=== PATIENT | male | born 1965 | race Caucasian/White ===

== ENCOUNTER 2024-02-08 15:45 | Inpatient (IN) | payer OTHER, SELFPAY ==
[2024-02-08] VITALS (9 sets, daily range): BP systolic 84–108; BP diastolic 52–70; BMI 28.6
[2024-02-08] MEDS: NSS 1000 IV (11:02)
[2024-02-08] MEDS: ZOFRAN 4 MG IV (11:03)
[2024-02-08 11:13] LABS: % Basophils 0.7 % (0-2); % Eosinophils 5.2 % (0-6); % Immature Granulocytes 0.4 % (0-0.5); % Lymphocytes 15.3 % (20.5-51.1); % Monocytes 11.5 % (1.7-9.3); % Neutrophils 66.9 % (42.2-75.2); Absolute Basophils 0.1 10^3/uL (0-0.2); Absolute Eosinophils 0.5 10^3/uL (0-0.7); Absolute Lymphocytes 1.6 10^3/uL (1.2-3.4); Absolute Monocytes 1.2 10^3/uL (0.1-0.6); Hematocrit 46.1 % (39.0-52.0); Hemoglobin 15.8 g/dL (13.0-18.0); Mean Corp Hgb Conc. 34.3 g/dL (33.0-37.0); Mean Corpuscular Hgb 27.6 pg (27.0-31.0); Mean Corpuscular Volume 80.5 fL (80.0-94.0); Mean Platelet Volume 9.8 fL (7.4-10.4); Nucleated Red Blood Cells % 0 % (-); Platelet Count 377 10^3/uL (130-400); Red Blood Cell Count 5.73 10^6/uL (4.70-6.10); White Blood Cell Count 10.4 10^3/uL (4.8-10.8)
[2024-02-08 11:26] LABS: ALT (SGPT) 41 U/L (0-50); AST (SGOT) 49 U/L (17-59); Albumin 5.1 g/dl (3.5-5.0); Alkaline Phosphatase 48 U/L (38-126); Blood Urea Nitrogen 79 mg/dl (9-20); Calcium 13.1 mg/dl (8.4-10.2); Carbon Dioxide 18 mmol/L (22-30); Chloride 100 mmol/L (98-107); Glucose 121 mg/dl (70-99); Lipase 484 U/L (23-300); Potassium 4.7 mmol/L (3.5-5.1); Sodium 135 mmol/L (135-145); Total Bilirubin 0.7 mg/dl (0.2-1.3); Total Protein 8.3 g/dl (6.3-8.2); eGFR 11.87
[2024-02-08 11:30] LABS: PT 32.7 Sec (11.4-14.6)
--- NOTE | 2024-02-08 11:34 | ED.GENMED ---
History of Present Illness
General
Chief Complaint: Abdominal Symptoms
Source: patient and spouse
Exam Limitations: none
Time Seen by Provider: 02/08/24 09:35
Nursing documentation reviewed up to this point in time: agreed with
Travel History
Have you had any contact with someone who has COVID-19?: No
Do you have any symptoms of coronavirus? Fever > 100 degrees, chills, cough, shortness of breath, sore throat, loss of taste or smell, muscle aches, or headache?: No
History of Present Illness
History of Present Illness:
58-year-old male with history of HTN, HLD, NIDDM, lupus, RA, Pituitary tumor, PE/DVT on Coumadin, presents stating he woke up 2 days ago in the middle of the night with cramps in his upper abdomen, throughout the night every 45 minutes he had
liquid diarrhea what looked like 'black tea' in it. He has taken Pepto-Bismol intermittently over the past few days. He has had increased belching and acid reflux, has been sweating off and on, now has a mild headache.
States yesterday at 5 PM he ate soup and at 6 PM he vomited nonbloody emesis, had lower abdominal cramps before the diarrhea. He has been trying to keep down Pedialyte and water but every time he put something in his stomach he has diarrhea.
Denies fever. Denies CP or SOB.
Took Imodium twice yesterday and twice last night.
He started Mounjaro 4 weeks ago otherwise no change in his medications.
Past History
Past History
ED Past Medical History: HTN, Hypercholesterolemia, NIDDM, Psychiatric (Anxiety) and Other (Kidney stones, Lupus, Anticoagulation problem on Coumadin, RA, Pituitary tumor, PE/DVT)
ED Past Surgical History: Orthopedic and Urological (Testicular torsion)
Social History
Tobacco: Non-smoker
Alcohol: Occasional
Personal:
Living: with family
Employment: Employed
Review of Systems
Review of Systems
Allergies reviewed?: Yes
All Other Systems: ROS reviewed and negative except as documented in HPI and ROS
Constitutional: Reports fatigue; Denies fever
Respiratory: Denies cough or trouble breathing
Cardiac: Denies chest pain
ABD/GI: Reports abdominal pain, nausea, diarrhea, black stools and anorexia; Denies vomiting or bloody stools
: Reports other (He states he has not been urinating as much as usual); Denies dysuria, frequency, difficulty voiding, urgency or dark urine
Musculoskeletal: Reports other (General body aches past several weeks); Denies joint swelling, edema, neck pain or back pain
Skin: Reports no symptoms
Neurological: Denies dizzy, headache, weakness or numbness
Phy Exam
Physical Exam
Physical Exam:
GENERAL: No acute distress. A&Ox3.
CONSTITUTIONAL: Afebrile.
EYES: PERRL, conjunctivae normal
Neck: Supple
ENMT: moist mucus membranes, Pharynx nl
RESPIRATORY: Regular respirations, nonlabored, lungs clear.
CARDIOVASCULAR: Regular rate and rhythm, no murmurs, no rubs.
GI: Soft, nontender, normal BS
MUSCULOSKELETAL: Moves with ease. Well perfused. No edema
SKIN: Warm, dry, pink
PSYCH: Normal mood and affect. Well kept, interactive and appropriate
NEUROLOGIC: Awake, alert and oriented. No focal neurological deficits
Course
Orders/Labs/Results
Orders:
Orders
02/08/24 10:13
Stool Culture Urgent
LUC Source: Feces/Stool
Specimen Description:
Date Specimen was Collected: 02/08/24
Time Specimen was Collected: 10:25
02/08/24 10:14
CT Abd/pel Without Iv Or Oral Urgent
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
Reason For Exam: Generalized abdominal pain, worse mid lower to lef
0.9% Sodium Chloride 1000 ml [Nss] 1,000 ml IV BOLUS
02/08/24 10:15
Ondansetron Injectable [Zofran] 4 mg IV NOW STA
02/08/24 11:03
Complete Blood Count/With Diff Urgent
Comprehensive Metabolic Panel Urgent
Lipase Urgent
Prothrombin Time Urgent
02/08/24 13:53
Electrocardiogram (*1) Urgent
Reason for Study: Other
Other Reason for Exam: hypercalcemia
EKG- Treatment ONCE
02/08/24 Dinner
1800 calorie (15 carb) Diabetic
At Your Request: Full Participation
Does patient need a safe tray?: Yes
02/08/24 15:11
Lactated Ringers [Lr] 1,000 ml IV BOLUS
02/08/24 15:28
Code Status As Directed
Resuscitation Status: Full Code
VTE Contraindication Routine
VTE Mechanical Device Contraindication: Medical Contraindication
Pharmocologic Contraindication: Medical Contraindication
Acetaminophen [Tylenol] 650 mg PO Q4HPRN PRN
Ondansetron Injectable [Zofran] 4 mg IV Q6HPRN PRN
Activity As Directed
Activity Level: With Assistance
Vital Signs As Directed
Frequency: Per unit guidelines
02/08/24 15:37
Admit/Transfer Patient As Directed
Co-Sign Provider:
Level of Care: Inpatient admission
Assign to:: Medical/Surgical
Physician / Group: Hospitalist
Diagnosis: ELVA, gastroenteritis
Reason for Hospitalization: ELVA
Expected length of stay greater than two midnights?: Yes
ELOS- Estimated Length of Stay in days: 2
I certify the patient meets the requirements for IP care: Yes
02/08/24 15:51
Urinalysis Reflex To Culture Urgent
Date Specimen was Collected: 02/08/24
Time Specimen was Collected: 15:38
Urine Creatinine Urgent
Date Specimen was Collected: 02/08/24
Time Specimen was Collected: 15:38
Urine Protein/Creat Ratio (Random) [Protein/Creat Ratio (Random)] Urgent
Date Specimen was Collected: 02/08/24
Time Specimen was Collected: 15:38
Urine Sodium Urgent
Date Specimen was Collected: 02/08/24
Time Specimen was Collected: 15:38
C difficile Antigen & Toxins Urgent
LUC Source: Feces/Stool
Specimen Description:
Date Specimen was Collected: 02/08/24
Time Specimen was Collected: 15:38
Stool Culture Urgent
LUC Source: Feces/Stool
Specimen Description:
Date Specimen was Collected: 02/08/24
Time Specimen was Collected: 15:38
Stool For WBC Urgent
LUC Source: Feces/Stool
Specimen Description:
Date Specimen was Collected: 02/08/24
Time Specimen was Collected: 15:38
02/08/24 16:00
Lactated Ringers [Lr] 1,000 ml IV 150 mls/hr
02/08/24 17:26
Insulin Aspart Corrective Low [Novolog Flexpen-Low Resistance] See Protocol SC AC
02/08/24 17:26
NEPHROLOGY CONSULT Routine
Consulting Provider: Kassy Solis
Was physician already notified: Yes
Reason for consult: ELVA.
Bedside Glucose Monitoring As Directed
Frequency: AC&HS
02/08/24 17:39
MARI, IgG Reflex to HEp-2 [S] Routine
BMP [Basic Metabolic Panel] Routine
CRP [C-Reactive Protein] Routine
Complement C3 Routine
Complement C4 Routine
ESR [Erythrocyte Sed Rate] Routine
ds-DNA Ab, IgG Reflex To Titer [S] Routine
02/08/24 18:00
Rosuvastatin Calcium [Crestor] 40 mg PO QPM
Warfarin [Coumadin] 3 mg PO ONCE@1800 ONE
02/08/24 20:00
Hydroxychloroquine [Plaquenil] 200 mg PO BID
02/09/24 06:00
Basic Metabolic Panel IN AM
Complete Blood Count/No Diff IN AM
Magnesium IN AM
Prothrombin Time IN AM
02/09/24 18:00
Warfarin [Coumadin] 6 mg PO QPM
Abnormal Lab Results
02/08/24
11:03
Absolute Neuts (auto) 7.0 H 10^3/uL
(1.4-6.5)
Absolute Monos (auto) 1.2 H 10^3/uL
(0.1-0.6)
Lymphocytes % 15.3 L %
(20.5-51.1)
Monocytes % 11.5 H %
(1.7-9.3)
PT 32.7 H Sec
(11.4-14.6)
Carbon Dioxide 18 L mmol/L
(22-30)
BUN 79 H mg/dl
(9-20)
Creatinine 5.3 H* mg/dL
(0.7-1.3)
Glucose 121 H mg/dl
(70-99)
Calcium 13.1 H* mg/dl
(8.4-10.2)
Total Protein 8.3 H g/dl
(6.3-8.2)
Albumin 5.1 H g/dl
(3.5-5.0)
Lipase 484 H U/L
(23-300)
02/08/24 11:03
02/08/24 11:03
Vital Signs
Initial and Last Documented VS:
Initial Vital Signs
Temp Pulse Resp BP Pulse Ox
97.8 F 102 16 100/52 98
02/08/24 09:15 02/08/24 09:15 02/08/24 09:15 02/08/24 09:15 02/08/24 09:15
Last Documented Vital Signs
Temp Pulse Resp BP Pulse Ox
97.8 F 85 18 108/70 97
02/08/24 17:28 02/08/24 17:28 02/08/24 17:28 02/08/24 17:28 02/08/24 17:28
Physical Therapy Aide consulted with Physician
Physical Therapy Aide consulted with physician?: Yes
Name of Physician Consulted: Celeste
MDM/Problems Addressed
Differential Diagnosis Includes:
gastroenteritis, diverticulitis, dehydration
MDM/Problems Addressed:
58-year-old male with history of HTN, HLD, NIDDM, lupus, RA, Pituitary tumor, PE/DVT on Coumadin, presents stating he woke up 2 days ago in the middle of the night with cramps in his upper abdomen, throughout the night every 45 minutes he had
liquid diarrhea what looked like 'black tea' in it. He has taken Pepto-Bismol intermittently over the past few days. He has had increased belching and acid reflux, has been sweating off and on, now has a mild headache.
States yesterday at 5 PM he ate soup and at 6 PM he vomited nonbloody emesis, had lower abdominal cramps before the diarrhea. He has been trying to keep down Pedialyte and water but every time he put something in his stomach he has diarrhea.
Denies fever. Denies CP or SOB.
Took Imodium twice yesterday and twice last night.
He started Mounjaro 4 weeks ago otherwise no change in his medications.
11:35 AM
CBC normal
CMP: Bicarb 18, BUN/creat 79/5.3 Ca++13.1 anion gap 17
Lipase 484
EKG: NSR
1:30 PM
CAT scan abdomen pelvis w/o contrast radiology report reviewed:
IMPRESSION:
1. Moderate fluid distention of the stomach which could be secondary to gastritis.
2. Mild chronic bilateral renal disease.
3. Mild hepatomegaly.
4. Severely enlarged prostate gland.
5. Mild thickening of the urinary bladder wall (probably chronic outlet obstruction.
6. Severe discogenic degenerative disease at L5/S1.
Case discussed with Dr. Alonso who reviewed CT scan and labs, no emergent treatment indicated, nothing to explain renal failure at this time
Pt remains comfortable and stable. Informed of all results and all questions answered.
Hospitalist notified of admission.
Dx: Acute renal failure, gastroenteritis
Chronic conditions affecting care: DM, HTN and Immunosuppressed (Rheumatoid arthritis on hydroxychloroquine)
*EKG
EKG Intrepretation Date: 02/08/24
Interpretation: normal
Rate: normal
Rhythm: sinus
[place]: normal axis
Interval: normal interval
QRS Pattern: normal QRS
Ischemia: non-specific ST changes
*Critical Care Note
Total Time (30-74mins, 75-104mins- exclusive of procedures): Not Applicable
ED Attending Note
-
Portions of this chart may have been created with voice recognition software.� Occasional wrong word or��sound alike� substitutions may have occurred due to the inherent limitations of voice recognition software.
Discharge Plan
Departure
Patient Disposition: Admit
Date of Disposition: 02/08/24
Time of Disposition: 13:42
Admit to: Med/Surg
Presentation/result/management discussed w/ accepting MD/DO: Hospitalist
Condition: Fair
Discharge Problem:
Acute renal failure, Gastroenteritis
Interventions
Interventions:
*Risk Screen - Suicide Last Done: 02/08/24 09:13
*General Assessment Last Done: 02/08/24 09:13
*Neglect/Abuse Screening Last Done: 02/08/24 09:13
ED- Fall Risk Assessment Last Done: 02/08/24 09:13
*ED COVID-19 Vaccine History Last Done: 02/08/24 09:15
*Nursing Disposition Last Done: 02/08/24 18:55
QO-Najbkk-Emdcngvahk Assessment Last Done: 02/08/24 09:13
Discharge Date and Time
Discharge Date/Time: 02/08/24 16:45
--- NOTE | 2024-02-08 15:11 | HPS.HSE ---
Family Physician
-
Family Physician: Toya Jones
Chief Complaint
-
Diarrhea nausea and vomiting
History of Present Illness
This is a 8-year-old male with a past medical history that significant for diabetes not on insulin, hypertension, hyperlipidemia history of lupus with anticoagulants and venous thromboembolism (PE and DVT) which is currently in remission who
presents emergency department after approximately 3 days of GI symptoms including diarrhea nausea vomiting.
Patient reported acute onset of diarrhea on . Reports watery diarrhea for which he was having bowel movements about every 30 minutes this lasted throughout the day on and Friday as well as half of the day on Friday. On Friday
started having nausea and vomiting and was unable to tolerate any p.o. Patient continued to take his usual OBEY inhibitor, thiazide and Jardiance on and Friday but did not take those medications today. He denies any hematochezia.
He denies any melena. Patient denies having any fevers or chills. Denies any recent travels or sick contact. Denies any recent antibiotic use. He denies any history of CAD.
Patient denies any urinary incontinence, dysuria or hematuria. He reported that he did have a blood work done 1 month ago because he was having fatigue and some generalized aches and pains. He was worked up for exacerbation of lupus. The ESR and
CRP were negative. The urine was clear at that time. His creatinine was 1.4. It was determined that this was not a lupus flare. Of note patient was diagnosed with lupus at age 17 with pericarditis. He said at the time he was hospitalized and
required IV medications but has been stable on Plaquenil without use of flare medications for several years. He states his fatigue has improved denies any rash joint aches and pains. He denies having any chest pain. Patient recently denies any
NSAID use. No recent contrast exposure.
In the emergency department patient blood pressure 1 and systolic, heart rate was 93. Normal oxygen saturation. ECG showed normal sinus rhythm at a rate of 93. He had a CT of the abdomen pelvis without contrast which showed no stone, no
hydronephrosis. Is CBC shows a white count of 10.9 hemoglobin of 15.8 and platelet of 372. INR was 3.2. Chemistries were notable for a BUN of 39, creatinine of 5.3 and a glucose of 121 and calcium of 13.1. Abnormal 5.1. Lipase was elevated at
484.
Medical History
Past Medical History
Past Medical History: Reports HTN and NIDDM
Additional Past Medical History:
Lupus
DVT
PE
Past Surgical History: Reports None
Social History
Tobacco: Non-smoker
Alcohol: None
Drug: None
Personal:
Living: With Family
Employment: Employed
Family History
Family History: Not pertinent
Allergies / Home Medications
Allergies reflects when Allergies were last updated in [facility].
Home Medications with original date entered in [facility]
Allergy/Medication List:
Allergies
Allergy/AdvReac Type Severity Reaction Status Date / Time
No Known Allergies Allergy Verified 02/08/24 09:17
Home Medications
amlodipine 5 mg tablet (Norvasc) 5 mg PO BID 02/08/24
cholecalciferol (vitamin D3) 125 mcg (5,000 unit) tablet (Vitamin D3) 125 mcg PO QPM 02/08/24
coQ10 (ubiquinol) 100 mg capsule 100 mg PO QPM 02/08/24
empagliflozin 25 mg tablet (Jardiance) 25 mg PO DAILY 02/08/24
fenofibrate micronized 160 mg tablet 160 mg PO DAILY@1200 02/08/24
hydrochlorothiazide 12.5 mg tablet 12.5 mg PO DAILY 02/08/24
hydroxychloroquine 200 mg tablet (Plaquenil) 200 mg PO BID 02/08/24
lisinopril 40 mg tablet 60 mg PO DAILY 02/08/24
metformin 500 mg tablet,extended release 24 hr 1,000 mg PO BID 02/08/24
omega 3-vwk-omr-fish oil 1,000 mg (120 mg-180 mg) capsule (Fish Oil) 2 cap PO BID 02/08/24
pantoprazole 40 mg tablet,delayed release (Protonix) 40 mg PO DAILY 02/08/24
rosuvastatin 40 mg tablet (Crestor) 40 mg PO QPM 02/08/24
therapeutic multivitamin 1 tab PO QPM 02/08/24
tirzepatide 5 mg/0.5 mL subcutaneous pen injector (Mounjaro) 2.5 mg SC MO 02/08/24
vitamin E 268 mg (400 unit) capsule 268 mg PO BID 02/08/24
warfarin 2 mg tablet 6 mg PO QPM 02/08/24
Review of Systems
-
History Source: Patient
Constitutional: Reports Fatigue
EENT: Reports No Symptoms
Respiratory: Reports No Symptoms
Cardiac: Reports No Symptoms
Abdomen/GI: Reports Nausea, Vomiting and Diarrhea
: Reports No Symptoms
Musculoskeletal: Reports No Symptoms
Skin: Reports No Symptoms
Neurological: Reports No Symptoms
Endocrine: Reports No Symptoms
Hematologic/Lymphatic: Reports No Symptoms
Psych: Reports No Symptoms
Physical Exam
Vital Signs
Vital Signs
Temp Pulse Resp BP Pulse Ox
97.8 F 102 16 90/54 95
02/08/24 09:15 02/08/24 09:15 02/08/24 09:15 02/08/24 13:31 02/08/24 13:45
Physical Exam
General: No Apparent Distress, Comfortable and Conversant
HEENT: Anicteric and PERRLA
Respiratory: Clear
Cardiac: S1/S2 and Regular Rhythm
Breast: Deferred by me
GI: Soft, Non Tender and Non Distended
Rectal: Deferred by Provider
Genito-urinary: Clear Urine
Musculoskeletal: No Clubbing, No Cyanosis and No Edema
Skin: Warm
Neuro: AO x 3
Hematologic/Lymphatic: No Lymphadenopathy
Psych: Calm and Intact Judgment/Insight
Laboratory Results
-
02/08/24 11:03
02/08/24 11:03
Laboratory Results
PT 32.7 Sec (11.4-14.6) H 02/08/24 11:03
INR 3.20 02/08/24 11:03
Total Bilirubin 0.7 mg/dl (0.2-1.3) 02/08/24 11:03
AST 49 U/L (17-59) 02/08/24 11:03
ALT 41 U/L (0-50) 02/08/24 11:03
Alkaline Phosphatase 48 U/L (38-126) 02/08/24 11:03
Lipase 484 U/L (23-300) H 02/08/24 11:03
Data Reviewed
-
CT Scan: Report Reviewed by me
Medical Tests (Nuc Med, Echo, EKG etc): Image Personally Visualized and interpreted
Lab Data: Labs Reviewed by me
Old Records: Reviewed
Impression/Plan
-
IMPRESSION:
Patient with h/o DM II, LUPUS, DVT/PE, HTN, presenting with 3 days of diarrhea, nasuea, vomiting and ELVA with creatinine of 5.3.
PLAN:
1. ELVA - Suspect secondary to combination of severe GI losses (bm q 30 minutes x 3 days with elevated Hgb, Albumin and lower bp) and use of ACEI + HCTZ. No NSAIDs or Contrast. Possible contribution of GN given h/o lupus. Cr 5.3, up from 1.4 1
month ago. BUN/Cr < 20. K and bicarb ok. No obstruction on imaging and made urine in ED.
- admit to med/surg
- check u/a for protein, rbc, and active sediments
- check urine protein/cr ratio
- check esr, crp, percy, DSDNA, c3/c4 levels
- check urine sodium and FENa
- bolus LR x 1, and continue with LR at 125 ml/hr,
- i/o q 8, repeat labs in 8 hours.
- hold acei, hctz, jardiance for now
- nephrology consultation
2. Diarrhea - Suspect acute viral gastroenteritis. No hematochezia. No fevers, chills. Non-toxic appearing.
- stool studies including cdiff, cultures , if negative, can start loperamide
- antiemetics and pain control
- ADAT
3. DM II
- hold metformin and jardiance
- sliding scale insulin for now
4. Lupus -
- continue hydroxychloroquine 200 bid
- check activity with serologies and urine studies as above
5. DVT/ PE
- INR, 3.5, 3mg of warfarin tonight, then continue 6mg qpm daily
Full Code
[2024-02-08] MEDS: LR 1000 IV ×2 (15:41→17:29)
[2024-02-08 16:08] LABS: Urine Albumin Trace (Neg - Trace); Urine Bilirubin 2+ (Negative); Urine Character Clear (Clear); Urine Color Yellow; Urine Glucose 2+ (Negative); Urine Ketone Trace (Negative); Urine Leukocyte Negative (Negative); Urine Nitrite Negative (Negative); Urine Occult Blood Negative (Negative); Urine Specific Gravity 1.025 (<1.030); Urine Urobilinogen Negative (Neg - 1+)
--- NOTE | 2024-02-08 16:12 | W.CON.NEPH ---
Consultation
-
Date/Time Consultation Requested: 02/08/24 1600
Date/Time Consultation Performed: 02/08/24 1730
Requesting Provider: Judith Brown
Performing Provider: Kassy Arteaga
Reason for Consultation: ELVA
Medical History
-
Chief Complaint: Diarrhea
History of Present Illness:
This is a 58-year-old male with a past medical history that significant for diabetes type 2 on metformin, Jardiance and mounjaro started 4wks ago, hypertension on Amlodipine, HCTZ, lisinopril 60mg, , hyperlipidemia on fibrates, history of RA,
systemic lupus on HCQ, known DVT, PE on warfarin presents emergency department after approximately 3 days of GI symptoms including profuse diarrhea nausea vomiting.
Patient reported acute onset of diarrhea 3days ago in midnight undigested food and later it became liquid. Has associated nausea and vomiting hence decreased po intake. His UOP decreased too. Feels dizzy and continued his BP meds. Did not check BPs.
had abd cramps. Patient denies having any fevers or chills. Denies any recent travels or sick contact. Denies any recent antibiotic use. He follows with Rheumatology closely and due to his recent fatigue, body aches he had retested ESR and CRP
which were ok but cr was up from baseline to 1.4 and felt no lupus flare. denies dysuria or hematuria. Of note patient was diagnosed with lupus at age of 17 with pericarditis. He said at the time he was hospitalized and required IV medications
but has been stable on Plaquenil without use of flare medications for several years. He states his fatigue has improved denies any rash joint aches and pains. He denies having any chest pain. Patient denies any NSAID use. No recent contrast
exposure CT abd done BACK LINE COOK. He needed CT chest for f/u on pulm nodule.
In the emergency department CT of the abdomen pelvis without contrast which showed no stone, no hydronephrosis. Is CBC shows a white count of 10.9 hemoglobin of 15.8, INR was 3.2. Chemistries were notable for a BUN of 39, creatinine of 5.3 and
calcium of 13.1. Alb 5.1. Lipase was elevated at 484. Hence nephrology consulted.
Past Medical History
HTN
HLD
Lupus
h/o pericarditis
RA
DVT
PE
DM
obesity
Social History
Tobacco: Non-Smoker
Alcohol: None
Drug: None
Personal:
Living: With Family
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
Family History
father nephrectomy for growth
Family History: Not Pertinent
Allergies / Home Medications
Allergy/AdvReac Type Severity Reaction Status Date / Time
No Known Allergies Allergy Verified 02/08/24 09:17
�Medication �Instructions �Recorded �Confirmed �Type
amlodipine 5 mg tablet (Norvasc) 5 mg PO BID 02/08/24 02/08/24 History
cholecalciferol (vitamin D3) 125 125 mcg PO QPM 02/08/24 02/08/24 History
mcg (5,000 unit) tablet (Vitamin
D3)
coQ10 (ubiquinol) 100 mg capsule 100 mg PO QPM 02/08/24 02/08/24 History
empagliflozin 25 mg tablet 25 mg PO DAILY 02/08/24 02/08/24 History
(Jardiance)
fenofibrate micronized 160 mg 160 mg PO DAILY@1200 02/08/24 02/08/24 History
tablet
hydrochlorothiazide 12.5 mg tablet 12.5 mg PO DAILY 02/08/24 02/08/24 History
hydroxychloroquine 200 mg tablet 200 mg PO BID 02/08/24 02/08/24 History
(Plaquenil)
lisinopril 40 mg tablet 60 mg PO DAILY 02/08/24 02/08/24 History
metformin 500 mg tablet,extended 1,000 mg PO BID 02/08/24 02/08/24 History
release 24 hr
omega [id number]-fish oil 1,000 mg 2 cap PO BID 02/08/24 02/08/24 History
(120 mg-180 mg) capsule (Fish Oil)
pantoprazole 40 mg tablet,delayed 40 mg PO DAILY 02/08/24 02/08/24 History
release (Protonix)
rosuvastatin 40 mg tablet (Crestor) 40 mg PO QPM 02/08/24 02/08/24 History
therapeutic multivitamin 1 tab PO QPM 02/08/24 02/08/24 History
tirzepatide 5 mg/0.5 mL 2.5 mg SC MO 02/08/24 02/08/24 History
subcutaneous pen injector
(Mounjaro)
vitamin E 268 mg (400 unit) capsule 268 mg PO BID 02/08/24 02/08/24 History
warfarin 2 mg tablet 6 mg PO QPM 02/08/24 02/08/24 History
Review of Systems
-
All complete 12 point ROS have been inquired and found negative other than stated in HPI
Physical Exam
Vital Signs
Vital Signs
Temp Pulse Resp BP Pulse Ox
97.8 F 102 16 100/62 99
02/08/24 09:15 02/08/24 09:15 02/08/24 09:15 02/08/24 15:00 02/08/24 15:45
Lab Results
WBC 10.4 10^3/uL (4.8-10.8) 02/08/24 11:03
RBC 5.73 10^6/uL (4.70-6.10) 02/08/24 11:03
Hgb 15.8 g/dL (13.0-18.0) 02/08/24 11:03
Hct 46.1 % (39.0-52.0) 02/08/24 11:03
Plt Count 377 10^3/uL (130-400) 02/08/24 11:03
eGFR 11.87 02/08/24 11:03
Albumin 5.1 g/dl (3.5-5.0) H 02/08/24 11:03
Abnormal Lab Results
02/08/24 02/08/24
11:03 15:51
Absolute Neuts (auto) 7.0 H
Absolute Monos (auto) 1.2 H
Lymphocytes % 15.3 L
Monocytes % 11.5 H
PT 32.7 H
Carbon Dioxide 18 L
BUN 79 H
Creatinine 5.3 H*
Glucose 121 H
Calcium 13.1 H*
Total Protein 8.3 H
Albumin 5.1 H
Lipase 484 H
Urine Ketones Trace A
Urine Bilirubin 2+ A
Urine Glucose 2+ A
CT abd:
IMPRESSION:
1. Moderate fluid distention of the stomach which could be secondary to gastritis.
2. Mild chronic bilateral renal disease.
3. Mild hepatomegaly.
4. Severely enlarged prostate gland.
5. Mild thickening of the urinary bladder wall (probably chronic outlet obstruction.
6. Severe discogenic degenerative disease at L5/S1.
Physical Exam
General: Awake, Alert, Oriented, AOx3, No Distress and Nontoxic
HEENT: EOMI and Anicteric
Respiratory: Clear, Normal Excursion and Nonlabored Respirations
Cardiac: S1/S2 and Regular Rate/Rhythm
Breast: Deferred by me
Abdomen: Soft, Nontender and Nondistended
Musculoskeletal: No Cyanosis and No Edema
Skin: No Rash, Warm and Dry
Neuro: Nonfocal/Grossly Intact
Psych: Mood/afflect pleasant, Insight/judgement good and Appropriate
Data Reviewed
-
Radiology: Report Reviewed by me and Discussed with Patient
Labs: Labs Reviewed by me and Discussed with Patient
Assessment/Plan
-
IMP:
ELVA with CKD -last baseline cr 1.4
Met acidosis
Hypercalcemia
Diarrhea - Suspect acute viral gastroenteritis
DM II
Lupus -hydroxychloroquine
RA
g/o lupus pericarditis
DVT/ PE
Plan:
A/w GE suspect viral
ELVA-suspect prerenal, U na low at 12, UA bland and no hydro on CT
hold ACEI, Jardiance, HCTZ and Mounjaro
follow UOP and bladder scan
Bp are soft, hold all BP meds
cont IVF change to bicarb if acidosis persists, currently on LR
hypercalcemia-likely vol contraction,check PTH, vit D, expect to improve with IVF
follow labs
d/w pt
[2024-02-08 16:25] LABS: Protein/creatinine Ratio 0.2; Urine Protein 43 mg/dl; Urine Sodium 12 mmol/L (30-90)
[2024-02-08 17:33] LABS: Glucose - Point of Care 73 mg/dl (70-99)
[2024-02-08 17:54] LABS: Erythrocyte Sed Rate 11 mm/hour (0-20)
[2024-02-08] MEDS: COUMADIN 3 MG PO (18:17)
[2024-02-08] MEDS: CRESTOR 40 MG PO (18:17)
[2024-02-08 18:32] LABS: Blood Urea Nitrogen 83 mg/dl (9-20); Calcium 11.8 mg/dl (8.4-10.2); Carbon Dioxide 17 mmol/L (22-30); Chloride 104 mmol/L (98-107); Estimated Creatinine Clearance 20 ml/min; Glucose 82 mg/dl (70-99); Potassium 4.6 mmol/L (3.5-5.1); Sodium 133 mmol/L (135-145); eGFR 15.25
[2024-02-08] MEDS: PLAQUENIL 200 MG PO (21:22)
[2024-02-08 21:33] LABS: Glucose - Point of Care 139 mg/dl (70-99)
[2024-02-09 00:10] LABS: Complement C3 116 mg/dl (88-165)
[2024-02-09] MEDS: LR 1000 IV ×2 (00:34→07:35)
[2024-02-09 07:15] LABS: INR 3.96; PT 38.7 Sec (11.4-14.6)
[2024-02-09 07:33] LABS: Calcium 11.4 mg/dl (8.4-10.2)
[2024-02-09 07:39] LABS: Blood Urea Nitrogen 73 mg/dl (9-20); Calcium 11.3 mg/dl (8.4-10.2); Carbon Dioxide 19 mmol/L (22-30); Chloride 105 mmol/L (98-107); Estimated Creatinine Clearance 28 ml/min; Glucose 91 mg/dl (70-99); Magnesium 2.1 mg/dl (1.6-2.3); Potassium 5.1 mmol/L (3.5-5.1); Sodium 135 mmol/L (135-145); eGFR 23.49
[2024-02-09 07:52] VITALS: BP 104/68
[2024-02-09 08:02] LABS: Glucose - Point of Care 84 mg/dl (70-99)
[2024-02-09 08:02] LABS: Hematocrit 39.3 % (39.0-52.0); Mean Corp Hgb Conc. 33.1 g/dL (33.0-37.0); Mean Corpuscular Hgb 27.5 pg (27.0-31.0); Mean Corpuscular Volume 83.3 fL (80.0-94.0); Red Blood Cell Count 4.72 10^6/uL (4.70-6.10); Red Cell Dist. Width 13.7 % (11.5-14.5); White Blood Cell Count 6.3 10^3/uL (4.8-10.8)
[2024-02-09 08:55] LABS: Mean Platelet Volume 10.2 fL (7.4-10.4); Platelet Count 282 10^3/uL (130-400)
[2024-02-09] MEDS: NSS 1000 IV ×2 (09:14→21:04)
[2024-02-09] MEDS: PLAQUENIL 200 MG PO ×2 (09:14→19:56)
[2024-02-09] MEDS: SODIUM BICARBONATE 650 MG PO ×2 (09:16→19:56)
[2024-02-09 09:43] LABS: Vitamin D, 25-OH*** 49.2 ng/mL (30-80)
--- NOTE | 2024-02-09 11:51 | W.PN.HOSP.TC ---
Today's Communication/Plan
-
Hold Coumadin tonight
IVF
BMP in AM
Sodium Bicarbonate
f/w oyster culler recommendations
Assessment / Plan
Assessment / Plan
Physical Exam
General: No Apparent Distress, Comfortable and Conversant
HEENT: Anicteric and PERRLA
Respiratory: Clear
Cardiac: S1/S2 and Regular Rhythm
GI: Soft, Non Tender and Non Distended
Rectal: No rectal bleeding
Genito-urinary: Clear Urine, no Alvarenga
Musculoskeletal: No Clubbing, No Cyanosis and No Edema
Skin: Warm
Neuro: AO x 3, he followed commands.
Psych: Calm and Intact Judgment/Insight.
ELVA - Suspect secondary to combination of severe GI losses and use of ACEI + HCTZ. No NSAIDs or Contrast. Possible contribution of GN given h/o lupus. Cr 5.3 on admission, up from 1.4 1 month ago. . No obstruction on imaging and made urine in
ED.
Check bladder scan
c/w IVF, change to NS due to rising potassium level
Start oral sodium [id number]
- urine sodium 12
- hold acei, hctz, Jardiance for now
-Appreciate nephrology input
# Diarrhea -
Seems to resolve
He wants to eat more solid food
C diff is negative
# DM II
- hold metformin and Jardiance
- sliding scale insulin for now
# Lupus -
- continue hydroxychloroquine 200 bid
- check activity with serologies and urine studies as above
# DVT/ PE
- INR, 3.9,
Hold Coumadin tonight
# Hypercalcemia, resolving to 11.4
Normal vitamin D level, PTH is pending. Possible secondary hyperparathyroidism
# Hyponatremia, resolved.
Full Code
Total time spent to see the patient, examine the patient on the floor, review data and lab results, discuss treatment plan with patient, nursing staff around 55 minutes
Anticipated Discharge: > 48 hours
Subjective/Interval History
-
Date of Service: February 09, 2024
No chest pain
No abd pain, would like to eat more
Objective Data
-
Labs:
Laboratory Results
02/09/24 02/09/24
06:17 06:17
WBC 6.3
Hgb 13.0
Hct 39.3
Plt Count 282 D
PT 38.7 H
INR 3.96
Sodium 135
Potassium 5.1
Chloride 105
Carbon Dioxide 19 L
BUN 73 H
Creatinine 3.0 H
Glucose 91
Calcium 11.3 H 11.4 H
Vital Signs:
Vital Signs
Temp Pulse Resp BP Pulse Ox
98.4 F 86 16 104/68 98
02/09/24 09:00 02/09/24 07:52 02/09/24 07:52 02/09/24 07:52 02/09/24 07:52
I&O
02/08/24 02/09/24 02/10/24
06:59 06:59 06:59
Intake Total 120 / 120
Balance 120 / 120
[2024-02-09 13:03] LABS: Glucose - Point of Care 116 mg/dl (70-99)
--- NOTE | 2024-02-09 13:44 | W.PN.NEPH.PH ---
Today's Communication / Plan
-
maintain IVFs
follow bmp
pth pending
Assessment/Plan
-
IMP:
ELVA with CKD -last baseline cr 1.4
Met acidosis
Hypercalcemia
Diarrhea - Suspect acute viral gastroenteritis
DM II
Lupus -hydroxychloroquine
RA
g/o lupus pericarditis
DVT/ PE
Plan:
A/w GE suspect viral
ELVA-suspect prerenal, U na low at 12, UA bland and no hydro on CT
holding ACEI, Jardiance, HCTZ and Mounjaro
Prerenal indices noted by fractional excretion of sodium
follow UOP and bladder scan
Creatinine improving to 3, urine output not recorded
Bp are soft, hold all BP meds
continue IVFs but change to bicarb if acidosis persists, currently on LR
hypercalcemia-likely volume contraction,checked PTH, vit D, expect to improve with IVF but thus far unchanged, maybe due to HCTZ (currently held)
follow labs
d/w pt
-
-
Date of Service: February 09, 2024
CC / HPI / ROS
-
Chief Complaint:
ELVA
Hypercalcemia
History of Present Illness:
hemodynamically low side
creatinine down to 3
Review of Systems:
uop : subjectively non oliguric
no chest pain or sob
less diarrhea
Labs
-
Labs:
WBC 6.3 10^3/uL (4.8-10.8) 02/09/24 06:17
RBC 4.72 10^6/uL (4.70-6.10) 02/09/24 06:17
Hgb 13.0 g/dL (13.0-18.0) 02/09/24 06:17
Hct 39.3 % (39.0-52.0) 02/09/24 06:17
Plt Count 282 10^3/uL (130-400) D 02/09/24 06:17
Sodium 135 mmol/L (135-145) 02/09/24 06:17
Potassium 5.1 mmol/L (3.5-5.1) 02/09/24 06:17
Chloride 105 mmol/L (98-107) 02/09/24 06:17
Carbon Dioxide 19 mmol/L (22-30) L 02/09/24 06:17
BUN 73 mg/dl (9-20) H 02/09/24 06:17
Creatinine 3.0 mg/dL (0.7-1.3) H 02/09/24 06:17
eGFR 23.49 02/09/24 06:17
Glucose 91 mg/dl (70-99) 02/09/24 06:17
Calcium 11.3 mg/dl (8.4-10.2) H 02/09/24 06:17
Calcium 11.4 mg/dl (8.4-10.2) H 02/09/24 06:17
Albumin 5.1 g/dl (3.5-5.0) H 02/08/24 11:03
Physical Exam
-
Vital Signs:
Vital Signs
Temp Pulse Resp BP Pulse Ox
98.4 F 86 16 104/68 98
02/09/24 09:00 02/09/24 07:52 02/09/24 07:52 02/09/24 07:52 02/09/24 07:52
Cardiovascular:: Regular rate and rhythm
Respiratory:: Bilateral: CTA
Lung Excursion:: Normal
Abdomen:: Nontender and Soft
Bowel Sounds:: Normal
Extremity Edema:: None: Bilateral:
--- NOTE | 2024-02-09 13:45 | CM ---
Met with pt at bedside
Lives in a 2 story home with his mother and daughters (21 and 26)
Independent, working FT, drives
DME - CPAP
SNF/HH - denies past hx
Has ride at d/c
PCP - Dr Toya Jones
Pharm - [facility]
manager field investigations will follow for d/c needs
Plan - anticipate home no needs
[2024-02-09 16:03] VITALS: BP 107/76
[2024-02-09 16:38] LABS: Glucose - Point of Care 121 mg/dl (70-99)
[2024-02-09] MEDS: CRESTOR 40 MG PO (17:15)
[2024-02-09 21:51] LABS: Glucose - Point of Care 138 mg/dl (70-99)
[2024-02-09 23:10] VITALS: BP 112/67
[2024-02-10 06:26] LABS: INR 2.87
[2024-02-10 06:46] LABS: Blood Urea Nitrogen 47 mg/dl (9-20); Calcium 10.3 mg/dl (8.4-10.2); Carbon Dioxide 23 mmol/L (22-30); Chloride 107 mmol/L (98-107); Estimated Creatinine Clearance 65 ml/min; Glucose 115 mg/dl (70-99); Potassium 3.9 mmol/L (3.5-5.1); Sodium 138 mmol/L (135-145); eGFR > 60.00
[2024-02-10 07:12] VITALS: BP 105/66
--- NOTE | 2024-02-10 07:54 | W.PN.HOSP.TC ---
Today's Communication/Plan
-
dc
Assessment / Plan
Assessment / Plan
Physical Exam
General: No Apparent Distress, Comfortable and Conversant
HEENT: Anicteric and PERRLA
Respiratory: Clear
Cardiac: S1/S2 and Regular Rhythm
GI: Soft, Non Tender and Non Distended
Rectal: No rectal bleeding
Genito-urinary: Clear Urine, no Alvarenga
Musculoskeletal: No Clubbing, No Cyanosis and No Edema
Skin: Warm
Neuro: AO x 3, he followed commands.
Psych: Calm and Intact Judgment/Insight.
ELVA - Resolving
Creatinine down to 1.3 upon dc
s/p IVF
Suspect secondary to combination of severe GI losses and use of ACEI + HCTZ. No NSAIDs or Contrast. Possible contribution of GN given h/o lupus. Cr 5.3 on admission, up from 1.4 1 a month ago. . No obstruction on imaging and made urine in ED.
Checked bladder scan, no retention.
dc sodium [id number]
- urine sodium 12
- held acei, hctz, Jardiance, will need to f/w nephrology in OP>
-Appreciate nephrology input
# metabolic acidosis, resolved.
#CT showed prostate enlargement
d/w pt, he noticed in a frequent feeling of incomplete emptying. Denied dysuria. He also reported mild sexual dysfunction. Patient was given information to follow-up with urology in the outpatient setting. He did not have acute urinary retention
in the hospital.
# Diarrhea -
Resolved
NO GI symptoms in hospital, tolerating diet.
C diff is negative
# DM II
- Resume metformin and Jardiance
Can resume mounjaro in OP setting.
# Lupus -
- continue hydroxychloroquine 200 bid
# DVT/ PE
- INR, 2.8 upon dc.
Can resume Coumadin.
# Hypercalcemia, resolving to 11.4
Normal vitamin D level, PTH is pending. Possible secondary to HCTZ use.
# Hyponatremia, resolved.
Full Code
Total discharge time spent to see the patient, examine the patient on the floor, review data and lab results, discuss discharge plan with patient, nursing staff around 65 minutes
Anticipated Discharge: Today
Subjective/Interval History
-
Date of Service: February 10, 2024
Doing well
No pain issues, n chest pain, no sob
Tolerating diet
No flank pain
No dysuria or urinary difficulty
Objective Data
-
Labs:
Laboratory Results
02/10/24
05:47
PT 30.0 H
INR 2.87
Sodium 138
Potassium 3.9
Chloride 107
Carbon Dioxide 23
BUN 47 H
Creatinine 1.3
Glucose 115 H
Calcium 10.3 H
Vital Signs:
Vital Signs
Temp Pulse Resp BP Pulse Ox
97.9 F 75 16 105/66 97
02/10/24 07:12 02/10/24 07:12 02/10/24 07:12 02/10/24 07:12 02/10/24 07:12
I&O
02/09/24 02/10/24 02/11/24
06:59 06:59 06:59
Intake Total 120 / 120 720 / 720
Output Total 400 / 400
Balance 120 / 120 320 / 320
[2024-02-10 08:21] LABS: Glucose - Point of Care 146 mg/dl (70-99)
[2024-02-10] MEDS: PLAQUENIL 200 MG PO (08:22)
[2024-02-10] MEDS: SODIUM BICARBONATE 650 MG PO (08:22)
--- NOTE | 2024-02-10 11:08 | W.PN.NEPH.PH ---
Today's Communication / Plan
-
Holding antihypertensives at discharge , they can be placed back in stepwise manner as blood pressure rebounds as outpatient
Renal failure resolved
Stable for discharge
Assessment/Plan
-
IMP:
ELVA with CKD -last baseline cr 1.4
Met acidosis
Hypercalcemia
Diarrhea - Suspect acute viral gastroenteritis
DM II
Lupus -hydroxychloroquine
RA
g/o lupus pericarditis
DVT/ PE
Plan:
A/w GE suspect viral
ELVA-suspect prerenal, U na low at 12, UA bland and no hydro on CT
Creatinine down to 1.3
Calcium down to 10.3
holding ACEI, Jardiance, HCTZ and Mounjaro
Prerenal indices noted by fractional excretion of sodium
Bp remain soft, holding all BP meds at discharge
hypercalcemia-likely volume contraction,checked PTH, vit D, expect to improve with IVF but thus far unchanged, maybe due to HCTZ (currently held)
d/w pt
-
-
Date of Service: February 10, 2024
CC / HPI / ROS
-
Chief Complaint:
ELVA
Hypercalcemia
History of Present Illness:
hemodynamically low side
creatinine down to 1.3
Calcium down to 10.3
Review of Systems:
uop : subjectively non oliguric
no chest pain or sob
less diarrhea
Labs
-
Labs:
WBC 6.3 10^3/uL (4.8-10.8) 02/09/24 06:17
RBC 4.72 10^6/uL (4.70-6.10) 02/09/24 06:17
Hgb 13.0 g/dL (13.0-18.0) 02/09/24 06:17
Hct 39.3 % (39.0-52.0) 02/09/24 06:17
Plt Count 282 10^3/uL (130-400) D 02/09/24 06:17
Sodium 138 mmol/L (135-145) 02/10/24 05:47
Potassium 3.9 mmol/L (3.5-5.1) 02/10/24 05:47
Chloride 107 mmol/L (98-107) 02/10/24 05:47
Carbon Dioxide 23 mmol/L (22-30) 02/10/24 05:47
BUN 47 mg/dl (9-20) H 02/10/24 05:47
Creatinine 1.3 mg/dL (0.7-1.3) 02/10/24 05:47
eGFR > 60.00 02/10/24 05:47
Glucose 115 mg/dl (70-99) H 02/10/24 05:47
Calcium 10.3 mg/dl (8.4-10.2) H 02/10/24 05:47
Albumin 5.1 g/dl (3.5-5.0) H 02/08/24 11:03
Physical Exam
-
Vital Signs:
Vital Signs
Temp Pulse Resp BP Pulse Ox
97.9 F 75 16 105/66 97
02/10/24 07:12 02/10/24 07:12 02/10/24 07:12 02/10/24 07:12 02/10/24 07:12
Cardiovascular:: Regular rate and rhythm
Respiratory:: Bilateral: CTA
Lung Excursion:: Normal
Abdomen:: Nontender and Soft
Bowel Sounds:: Normal
Extremity Edema:: None: Bilateral:
Alvarenga Catheter: No
[2024-02-10 11:51] LABS: Glucose - Point of Care 143 mg/dl (70-99)
--- NOTE | 2024-02-10 12:47 | CM ---
Case management following for d/c planning
Pt for d/c today
Has ride home with spouse
Plan - home no needs
[2024-02-10 14:23] LABS: Intact PTH 4.2 pg/ml (13.6-85.8)
[2024-02-10 15:14] VITALS: BP 106/78
[2024-02-11 00:20] LABS: ds-DNA Ab, IgG Reflex To Titer 14 IU (0-24)
[2024-02-11 09:08] LABS: ANA, IgG Reflex to HEp-2 Detected (None Detected)
[2024-02-13 07:22] LABS: ANA, HEp-2, IgG Detected (<1:80)
== END 2024-02-10 15:22 | disposition home or self-care (01) | DRG 683 ==
LOC: 3 WEST ACU 15:45
PROVIDERS: Registered Nurse; ADMITTING PHYSICIAN Internal Medicine; ATTENDING PHYSICIAN Internal Medicine; CONSULT PHYSICIAN Internal Medicine; EMERGENCY PHYSICIAN Emergency Medicine; FAMILY PHYSICIAN Nurse Practitioner Adult Health
DX: N17.9 Acute kidney failure, unspecified (principal); E87.1 Hypo-osmolality and hyponatremia; E87.20 Acidosis, unspecified; M32.12 Pericarditis in systemic lupus erythematosus; A08.4 Viral intestinal infection, unspecified; I12.9 Hypertensive chronic kidney disease with stage 1 through stage 4 chronic kidney disease, or unspecified chronic kidney disease; N18.9 Chronic kidney disease, unspecified; E11.22 Type 2 diabetes mellitus with diabetic chronic kidney disease; M06.9 Rheumatoid arthritis, unspecified; D49.7 Neoplasm of unspecified behavior of endocrine glands and other parts of nervous system; E83.52 Hypercalcemia; E78.00 Pure hypercholesterolemia, unspecified; K21.9 Gastro-esophageal reflux disease without esophagitis; E66.9 Obesity, unspecified; N40.0 Benign prostatic hyperplasia without lower urinary tract symptoms; R16.0 Hepatomegaly, not elsewhere classified; Z86.718 Personal history of other venous thrombosis and embolism; Z86.711 Personal history of pulmonary embolism; Z79.01 Long term (current) use of anticoagulants; Z87.442 Personal history of urinary calculi; Z68.28 Body mass index [BMI] 28.0-28.9, adult
CPT/HCPCS: 74176; 80048; 80053; 81003; 82306; 82570; 82962; 83690; 83735; 83970; 84156; 84300; 85025; 85027; 85610; 85652; 86038; 86039; 86140; 86160; 86225; 87045; 87046; 87324; 87427; 87449; 89055; 93005; 96361; 96374; 99285